=== PATIENT | male | born 1990 | race African-American/Black ===

== ENCOUNTER 2017-05-22 20:30 | Emergency (ER) | payer OTHER, SELFPAY ==
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
== END 2017-05-22 23:25 | disposition home or self-care (01) ==
LOC: ERS 20:30
DX: S39.012A Strain of muscle, fascia and tendon of lower back, initial encounter (principal); V89.2XXA Person injured in unspecified motor-vehicle accident, traffic, initial encounter
CPT/HCPCS: 71046; 72100; 72170

== ENCOUNTER 2018-02-28 07:16 | Emergency (ER) | payer OTHER, SELFPAY ==
[2018-02-28] MEDS ORDERED: Ketorolac Tromethamine 60 MG/2 ML VIAL ONE (08:05)
[2018-02-28] MEDS ORDERED: Dexamethasone 10 MG/ML VIAL ONE (08:05)
== END 2018-02-28 10:38 | disposition home or self-care (01) ==
LOC: ERS 07:16
DX: J02.9 Acute pharyngitis, unspecified (principal)
CPT/HCPCS: 87081; 87430; 96372; J1100; J1885